=== PATIENT | female | born 2000 | race Caucasian/White ===

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

== ENCOUNTER 2021-12-08 14:59 | Outpatient (CLI) | payer BC, MEDICAID, SELFPAY ==
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
== END 2021-12-08 15:00 | disposition home or self-care (01) ==
LOC: RAD 15:03
PROVIDERS: Family Provider Pediatrics Adolescent Medicine; PCP Pediatrics Adolescent Medicine; Visit Provider Nurse Practitioner
DX: M25.531 Pain in right wrist (principal); S69.91XA Unspecified injury of right wrist, hand and finger(s), initial encounter; X58.XXXA Exposure to other specified factors, initial encounter
CPT/HCPCS: 73110

== ENCOUNTER 2022-01-30 11:50 | Outpatient (CLI) | payer BC, MEDICAID, SELFPAY ==
[2022-01-30 13:00] LABS: Basophils # 0.1 10^3/uL (0.0-0.1); Basophils % 0.7 %; Eosinophils # 0.2 10^3/uL (0.0-0.8); Eosinophils % 2.5 %; Hematocrit 48.2 % (37.0-47.0); Hemoglobin 16.5 g/dL (11.5-15.3); Lymphocytes # 2.2 10^3/uL (1.5-6.5); Lymphocytes % 30.1 %; Mean Corpuscular HGB Conc 34.2 g/dL (30.0-36.0); Mean Corpuscular Hemoglobin 31.1 pg (28.0-34.0); Mean Corpuscular Volume 90.9 fl (81-99); Mean Platelet Volume 9.8 fL (7.4-10.4); Monocytes # 0.5 10^3/uL (0.2-0.9); Monocytes % 7.4 %; Neutrophils # 4.27 10^3/uL (1.8-8.0); Neutrophils % 58.9 %; Nucleated Red Blood Cells % 0 %; Platelet Count 322 10^3/cmm (130-400); Red Cell Distribution Width 11.7 % (12.1-15.1); White Blood Count 7.3 10^3/uL (4.5-13.0)
[2022-01-30 13:20] LABS: Alanine Aminotransferase 12 U/L (0-33); Albumin Level 4.3 g/dL (3.5-5.2); Alkaline Phosphatase 76 U/L (35-105); Aspartate Amino Transferase 18 U/L (0-32); Blood Urea Nitrogen 10 mg/dL (6-20); Calcium 9.6 mg/dL (8.5-10.5); Carbon Dioxide 26 mmol/L (22-29); Chloride 101 mmol/L (98-107); Chol HDL Ratio 4.26 mg/dL (0.0-4.40); Cholesterol 230 mg/dL (0-200); Free T4 Free Thyroxine 1.38 ng/dL (0.82-1.77); Globulin 3.7 g/dL (1.3-4.6); Glomerular Filtration Rate 127.5 mL/min (90-130); Glucose 82 mg/dL (65-115); HDL Cholesterol 54 mg/dL (60-100); LDL Cholesterol Calculated 141 mg/dL (50-129); LDL HDL Ratio 2.61 RATIO (0.00-3.22); Magnesium 2.1 mg/dL (1.7-2.3); Osmolality Calculated 284 mOsm/kg (285-295); Sodium 138 mmol/L (136-145); Thyroid Stimulating Hormone 0.81 uIU/mL (0.27-4.20); Total Bilirubin 0.4 mg/dL (0.15-1.2); Triglycerides 174 mg/dL (0-150); Uric Acid 3.8 mg/dL (2.4-5.7)
[2022-01-30 13:30] LABS: 25 Hydroxy Vitamin D 38 ng/mL (30-100)
[2022-01-30 13:32] LABS: Lactate Dehydrogenase 188 U/L (135-214)
== END 2022-01-30 11:51 | disposition home or self-care (01) ==
PROVIDERS: Nurse Practitioner; PCP Pediatrics Adolescent Medicine; Visit Provider Pediatrics Adolescent Medicine
DX: Z00.00 Encounter for general adult medical examination without abnormal findings (principal); R51.9 Headache, unspecified; R25.2 Cramp and spasm
CPT/HCPCS: 36415; 80053; 80061; 82306; 83615; 83735; 84439; 84443; 84550; 85025

== ENCOUNTER → 2022-02-11 15:03 | Outpatient (BNVA) | payer BC, MEDICAID, SELFPAY | PROVIDERS: PCP Pediatrics Adolescent Medicine; Visit Provider Student in an Organized Health Care Education/Training Program | DX: J02.9 Acute pharyngitis, unspecified (principal) | CPT/HCPCS: 87070; 87071; 87880 ==

== ENCOUNTER → 2022-04-28 15:40 | Outpatient (BNVA) | payer BC, MEDICAID, SELFPAY | PROVIDERS: PCP Pediatrics Adolescent Medicine; Visit Provider Nurse Practitioner | DX: R30.0 Dysuria (principal); R11.2 Nausea with vomiting, unspecified | CPT/HCPCS: 81000; 81025; 87077; 87086; 87184; 87491; 87591; 87661 ==

== ENCOUNTER → 2022-05-17 12:29 | Outpatient (BNVA) | payer BC, MEDICAID, SELFPAY | PROVIDERS: PCP Pediatrics Adolescent Medicine; Referring Provider Dermatology; Visit Provider Specialist | DX: M25.531 Pain in right wrist (principal); M79.601 Pain in right arm; M79.641 Pain in right hand; R20.0 Anesthesia of skin | CPT/HCPCS: 73110 ==

== ENCOUNTER 2022-07-14 07:54 | Outpatient (CLI) | payer BC, MEDICAID, SELFPAY ==
--- NOTE | 2022-07-14 08:00 | MR_ITS ---
WS: [id number] MRI BRAIN WITH AND WITHOUT CONTRAST HISTORY: R51.9 - Headache, unspecified COMPARISON: None available. TECHNIQUE: Multiplanar imaging performed through the brain with MultiHance 12 ml's IV. No acute infarcts are seen. Avalos-white matter differentiation is well preserved. No susceptibility artifacts or prior lacunar infarcts. Ventricles and extra-axial spaces are normal. Clivus and pituitary gland are normal. Visualized posterior fossa and brainstem are also normal. Postcontrast images are negative for masses or vascular malformations. Dural venous sinuses are normal. Paranasal sinuses: Well aerated with no significant disease. Mastoid air cells: Normal. Calvarium and scalp: Normal. MR/MR head wo/w con [id number] IMPRESSION: 1. Normal MRI brain with contrast. 2. No signal abnormality or abnormal enhancement.
[2022-07-14] MEDS: gadobenate dimeglumine 20 mL vial IV (09:12)
== END 2022-07-14 07:55 | disposition home or self-care (01) ==
LOC: RAD 07:56
PROVIDERS: PCP Pediatrics Adolescent Medicine; Visit Provider Pediatrics Adolescent Medicine
DX: R51.9 Headache, unspecified (principal)
CPT/HCPCS: 70553; A9577